=== PATIENT | female | born 1935 | race Caucasian/White ===

== ENCOUNTER 2017-02-16 11:56 | Emergency (ER) | payer MEDICARE, MEDICAID ==
[~2017-02-16] VITALS: Ht 167.6 cm; Wt 65.8 kg
--- NOTE | 2017-02-16 12:00 | NUR ---
PT BIBA FOR SHINGLES FLARE UP- NOTED ON FOREHEAD X 2 DAYS. NAD NOTED. DENIES PAIN ELSEWHERE. VSS. SAFETY AND COMFORT MEASURES PROVIDED. WILL MONITOR.
--- NOTE | 2017-02-16 13:30 | NUR ---
WAITING FOR FAMILY TO PRIVATE DUTY RN ETA 30MINS.
--- NOTE | 2017-02-16 14:03 | NUR ---
Patient discharged to home in stable condition. Written and verbal after care instructions given. Patient verbalizes understanding of instruction.
[2017-02-16 14:10] VITALS: BP 132/71
== END 2017-02-16 14:12 | disposition home or self-care (01) ==
LOC: ER 11:57
DX: B02.9 Zoster without complications (principal); E11.9 Type 2 diabetes mellitus without complications; I10 Essential (primary) hypertension; F32.9 Major depressive disorder, single episode, unspecified; Z95.818 Presence of other cardiac implants and grafts
CPT/HCPCS: A4606; Z7610